=== PATIENT | female | born 1950 | race Caucasian/White ===

== ENCOUNTER → 2019-09-30 | Outpatient (CLI) | payer OTHER ==
[~2019-09-30] VITALS: Ht 175.3 cm; Wt 72.6 kg
[~2019-09-30] MED LIST: ACETAMINOPHEN650 M5 PO; CELEXA 10 MG TA10 MG PO; CO Q-10100 MG PO; CYMBALTA30 MG PO; CYMBALTA60 MG PO; IBUPROFEN 600600 M1 PO; MOBIC15 MG PO; NAPROXEN 500MG500 MG PO; PROBIOTIC1 EAC1 PO; SYNTHROID100 MCG PO; SYNTHROID125 MC1 PO
--- NOTE | 2019-10-04 16:06 | PATH ---
[facility] [place] [address] PATHOLOGY RPT PROCEDURE Name: RAFAEL AGUILARBERNARD BHANDARI Room #: REG KYM Sarabia.#: [id number] Admission: 09/30/19 Date of : 52 Discharge: Report #: [id number] Path Case #: [id number] [facility] Accession Number: [id number] . 01 Material submitted: . PART A: hepatic flexure - POLYP AT HEPATIC FLEXURE PART B: colon - POLYP AT DISTAL TRANSVERSE. Modifiers: distal, transverse . 01 Clinical history: . Screening . 02 Diagnosis: A. Polyp, at hepatic flexure, endoscopic biopsy: - Tubular adenoma. - Negative for high-grade dysplasia. . B. Polyp, at distal transverse, endoscopic biopsy: - Hyperplastic polyp. - Negative for dysplasia. . (IUV:preet; 10/04/2019) MBR 10/04/2019 1026 Local . 02 Electronically signed: . Sari Vaz MD, Pathologist NPI- [id number] . 01 Gross description: . A. Received in formalin labeled "Keke Aguilar, polyp at hepatic flexure," are two segments of pale nichols soft tissue measuring 0.3 x 0.3 x 0.2 cm each in greatest dimensions. The specimen is submitted entirely in cassette A1. . B. Received in formalin labeled "Lauren, Keke, polyp at distal transverse," is a segment of pale nichols to hemorrhagic mucosa measuring 1.1 x 0.6 x 0.1 cm in greatest dimensions. The surgical margin is inked, and the specimen is bisected and submitted entirely in cassette B1. ([facility]; 10/03/2019) XAZ/XAZ 10/03/2019 0910 Local . 02 Pathologist provided ICD-10: D12.3, K63.5 . 02 CPT . 332070, 388488 Specimen Comment: A courtesy copy of this report has been sent to [phone], [phone], [place] [address] PATHOLOGY RPT PROCEDURE Name: KEKE AGUILAR THONY Room #: REG [facility] Seun#: [id number] Admission: 09/30/19 Date of : 52 Discharge: Report #: [id number] Path Case #: [id number] Specimen Comment: [id number] Specimen Comment: Report sent to and Performed at: [address], [place], [place] [id number] MD Jeancarlos Grant MD Phone: [phone] Performed at: [address] [id number] MD Sari Vaz MD Phone: [phone]
--- NOTE | 2019-10-06 10:04 | P ---
[facility] [address] PROCEDURE REPORT Name: KEKE REY Room #: REG [facility]#: [id number] Admission: 09/30/19 Attend Phys: Satinder Campoverde MD Discharge: Date of : 52 Report #: [id number] THIS REPORT FOR: //name// CC: Satinder Ring OUTPATIENT COLONOSCOPY BRIEF HISTORY: The patient is a 69-year-old woman for average risk screening colonoscopy. PREOPERATIVE DIAGNOSIS: Average risk screening colonoscopy. POSTOPERATIVE DIAGNOSIS: Colon polyps x 2. MEDICATIONS: Deep sedation with propofol per anesthesia. SPECIMENS: 1. Hepatic flexure polyp. 2. Polyp, distal transverse colon. ESTIMATED BLOOD LOSS: 3 mL. PROCEDURE: Colonoscopy to cecum and terminal ileum with snare polypectomy and biopsy. FINDINGS: Prior to propofol sedation, procedure of colonoscopy discussed with the patient as well as potential risks and its complications. She indicates she understands and desires to proceed. DESCRIPTION OF PROCEDURE: With the patient in left lateral decubitus position, digital examination was completed, which revealed no abnormalities. Subsequently, the Olympus video colonoscope was introduced in the rectum, advanced under direct vision to the cecum. Cecum was identified by the ileocecal valve and the appendiceal orifice. I was able to visualize the distal segment of terminal ileum, which was inspected and noted to be unremarkable. At that point, the scope was slowly withdrawn and careful circumferential views were obtained. Upon slow withdrawal of the scope, the prep was excellent. Mucosa was within normal limits, normal vascular pattern, normal light reflex. No abnormalities were noted until the hepatic flexure was reached and there was a flat 4-mm polyp withdrew with cold biopsy forceps. Scope was further withdrawn and a very flat mucus covered polyp was seen in the distal transverse colon. This was about 6-7 mm in greatest dimension, removed by cold snare polypectomy. Scope was further withdrawn and the remainder of the colon exam was unremarkable with normal mucosa without evidence of additional neoplastic lesions. Scope was withdrawn in the rectum. Upon retroflexion, [facility] [address] [place] [address] PROCEDURE REPORT Name: CANDIDOKEKE Room #: REG [facility].#: [id number] Admission: 09/30/19 Attend Phys: Satinder Campoverde MD Discharge: Date of : 52 Report #: [id number] abnormalities were seen. Scope was withdrawn. The patient tolerated the procedure well. CONDITION OF THE PATIENT UPON DISCHARGE: Following procedure, the patient drowsy, aroused, conversant and will be discharged home when fully ambulatory. INSTRUCTIONS TO THE PATIENT AND FAMILY AT THE TIME OF DISCHARGE: We will follow up on the pathology of the polyps. If one or both are adenomas, she should return in 5 years; if neither one is adenomas, then 10 years would be indicated for repeat colonoscopy. Last colonoscopy was in 2011. Withdrawal time from the cecum was 22 minutes 59 seconds. <ELECTRONICALLY SIGNED> By: Satinder Campoverde MD 10/06/19 1004 [id number] Satinder Campoverde MD /nt
== END | disposition home or self-care (01) ==
LOC: GI 07:26
DX: Z12.11 Encounter for screening for malignant neoplasm of colon (principal); D12.3 Benign neoplasm of transverse colon; E03.9 Hypothyroidism, unspecified; M19.90 Unspecified osteoarthritis, unspecified site; F32.9 Major depressive disorder, single episode, unspecified; Z90.49 Acquired absence of other specified parts of digestive tract; Z98.890 Other specified postprocedural states; Z79.899 Other long term (current) drug therapy; Z88.0 Allergy status to penicillin; Z88.2 Allergy status to sulfonamides; Z88.8 Allergy status to other drugs, medicaments and biological substances
CPT/HCPCS: 62110; 62900